=== PATIENT | female | born 1955 | race Caucasian/White ===

== ENCOUNTER 2017-02-21 01:45 | Inpatient (IN) | payer OTHER ==
--- NOTE | 2017-02-14 12:46 | History & Physical Pre-Op ---
General Information and HPI MD Statement: I have seen and personally examined ORLANDO KELLEY and documented this H&P. The patient is a 61 year old F who presented with a patient stated chief complaint of []. Source of Information: patient Exam Limitations: no limitations History of Present Illness: 61-year-old right-handed woman who has severe neck pain and left arm pain. She was in satisfactory condition March 2016 when her arm and neck while being on the severe traction wanted comforters she was carrying a call escalator. She started having neck pain. She went through a course of physical therapy and traction with traction worsened her symptoms Her symptoms are worse with activity coughing walking lying down. This support improve with medication change of position. She complains of weakness numbness and tingling in both arms. She feels her strength in her right hand including attaching intravenous solutions the patient. Allergies/Medications Allergies: Coded Allergies: NO KNOWN ALLERGIES (01/25/12) Home Med list Albuterol Sulfate (Proair Hfa) 90 MCG HFA.AER.AD 2 PUF INH Q4-6 PRN PRN asthma Albuterol Sulfate 1.25 MG/3 ML VIAL.NEB 1 Vial INH/JASON Q4-6 PRN asthma [BIOSIL] 1 CAP PO DAILY SUPPLEMENT (Reported) Diclofenac Sodium 75 MG TABLET.DR 1 TAB PO BID PRN PAIN (Reported) Doxycycline Hyclate (Vibramycin) 100 MG CAPSULE 1 CAP PO BID sinusitis Meloxicam 7.5 MG TABLET 1 TAB PO BID PRN PAIN/INFLAMMATION (Reported) Multivitamin With Iron (Hair Vitamin) 1 EACH TABLET 1 TAB PO DAILY SUPPLEMENT (Reported) [nebulizer machine] 1 U NEB 1 U UNK 1 PRN ASTHMA 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 With Home Meds: UNKNOWN Past History Medical History Type of Reaction: Anaphylaxis (none) Neurological: NONE EENT: NONE Cardiovascular: NONE Respiratory: NONE Gastrointestinal: NONE Hepatic: NONE Renal: NONE Musculoskeletal: C5-C6 FUSION Psychiatric: NONE Endocrine: NONE Blood Disorders: NONE Cancer(s): NONE 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 Home Who Do You Live With? spouse Services at Home None Primary Language: Kazakh Smoking Status: Never Smoked ETOH Use: occasional use Illicit Drug Use: denies illicit drug use Living Will? unknown Power of Searchlight Operator/HCP? 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 Ambulation: independent IADLs Independent: shopping. 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 EENTM: Denies: no symptoms. Cardiovascular: Denies: no symptoms. Respiratory: Denies: no symptoms. GI: Denies: no symptoms. Genitourinary: Denies: no symptoms. Musculoskeletal: Denies: no symptoms. Skin: Denies: no symptoms. Neurological/Psychological: Reports: see HPI. Hematologic/Endocrine: Denies: no symptoms. Immunologic/Allergic: Denies: no symptoms. All Other Systems: Reviewed and Negative Post Menopausal: Yes Mammogram Testing Status: Unknown if test ever done Pap Smear Testing Status: Unknown if test ever done Colonoscopy Testing Status: Unknown if test ever done Comments Symptomatology truly related to her neck complaints Exam & Diagnostic Data Last 24 Hrs of Vital Signs/I&O 5feet4, 150 pounds Physical Exam General Appearance Alert, Oriented X3, Cooperative Skin No Rashes, scars from previous surgery HEENT Atraumatic, marked decreased range of motion of neck on lateral bending with a positive Spurling sign to the right Neck No thryomegaly Lymphatic Cervical nl Cardiovascular Regular Rate Lungs Clear to Auscultation Abdomen Soft Neurological absent triceps reflex on the left. Increased finger flexors on the right. No Johnna's. Deep tendon reflexes are decreased in C6-C7 and T1 distribution. Hyporeflexic at the knee but no evidence of myelopathy. Extremities No Clubbing Vascular Normal Pulses Breasts No breast masses, deferred to primary care Reproductive (FEMALE) deferred to primary care Pelvic (FEMALE) deferred to primary care Rectal deferred to primary care Last 24 Hrs of Labs/John: INR normal Diagnostic Data ITS Data Unobtainable at this time EKG Results As per primary care CXR Results Reportedly clear Other Results MRI shows H and P C6 7 and C7-T1 Assessment/Plan Assessment/Plan: #1 cervical radiculopathy #2 and soft disc C6 7 C7-T1 As Ranked By This Provider Problem List: 1. Cervical radiculopathy at C7 Attending MD Review Statement Attending Statement Attending MD Statement: examined this patient, discussed with family Attending Assessment/Plan: Patient is admitted for two-level anterior cervical discectomy and fusion C6 7 C7-T1
[~2017-02-21] VITALS: Ht 162.6 cm; Wt 72.6 kg
[~2017-02-21 01:45] MED LIST: ALBUTEROL1.25 MG/1 INH/SOL; BIOSIL PO; DICLOFENAC SODI75 M2 PO; HAIR VITAMIN1 EACH PO; MELOXICAM7.5 M1 PO; PROAIR HFA8.5 GM INH; VIBRAMYCIN100 MG PO; nebulizer machine
--- NOTE | 2017-02-21 15:00 | Operative Report ---
Operative/Inv Procedure Report Surgery Date: 02/21/17 Name of Procedure: 1 anterior cervical microscopic discectomy C6C7, C7-T1 #2 preparation of space for fusion C6 7 C7-T1 Pre-Operative Diagnosis: #1 spondylosis C6 7 #2 spondylosis C7-T1 Post-Operative Diagnosis: Same Estimated Blood Loss: 50ml to 100ml Surgeon/Manager Of Purchasing: Dr. Antoine Quiroz MD(co-surgeon) Anesthesia: general endotracheal tube Monitors: Neurophysiology monitoring IV Fluids: D5 normal saline Implants: [employer]tronic Urine Output: See anesthesia report Drains: One Anthony-Luis Specimens: H&P C6 7 C7-T1 Microbiology: None Tourniquet: None Complications: Required ultimately at the closing of the case of a small vessel ligature from vascular surgery, Dr. Patel Condition: Stable Operative Indication: 61-year-old woman with excruciating neck pain and left arm pain who had significant compromise of the foramina at C6 7 which was beneath the previous fusion and C7-T1. Having failed all conservative measures indication for surgery alternative risks and possible complications were discussed at length patient elected to have surgery performed O guarantees given all questions answered Operative/Procedure Note Note: The patient was intubated supine was kept supine in the operating room with her neck hyperextended on a rolled sheet in a traction device with 10 pounds of weight. 2 g of antibiotics were given in the appropriate time frame. Her neck was prepped and draped in the usual sterile manner after initial C-arm films were obtained and a new incision created on the right-hand side of her neck after infiltrating with Xylocaine and epinephrine. Sharp dissection was carried down to the platysma which was then dissected in the direction of its fibers Sharp dissection was carried down to the anterior cervical fascia which was stripped going superiorly and inferiorly superiorly allowing us to see the previous plate which was then removed and for this C Izzy Quiroz MD's note Townsend were placed and the C6-7 and C7-T1 spaces and this was confirmed by C- arm After disinserting the longus coli muscles the appropriate retraction was obtained with Trimline retractors horizontally and vertically Following this under the illumination and magnification provided for by the Leica microscope the space at C6 7 was entered the massive anterior osteophyte being removed with 3 mm Kerrisons disc material was removed with straight pituitary and micro-graspers this was carried down until the posterior longitudinal ligament. Intervertebral body locomotive oiler was placed within the ligaments opened with a 1 mm Kerrison following this the remainder of the ligament and osteophytes were removed with 2 mm Kerrison and the and the foramen they were opened with 2 and 3 mm Kerrisons was foramen a especially on the left wide open the passage of a right angle ball dissector and a 45 ball dissector allowed us to verify that we had clear passage of instruments through an foraminotomy the piece of Gelfoam was left in the space attention was then directed to the C6 7 the C7-T1 space were likewise anterior osteophyte was removed with 2 mm Kerrison disc material removed with straight and up-biting pituitary and micro-grasper and intervertebral body locomotive oiler was then placed the posterior longitudinal ligament opened with 1 mm Kerrison and 2 mm Kerrison used to remove the posterior osteophytes and a foraminal entrapment upon removal there was a brief period of anomalous reading which normalized on neurophysiology towards the right Once the disc and removed from both spaces using angled curettes and rasps and high-speed drills both spaces were then prepared for fusion squared off and osteophytes anterior removed once the spaces were prepared for fusion procedure was allowed to proceed with Izzy Quiroz MD and this we dictated separately sponges and count correct and neurophysiology was back to baseline Findings: Significant osteoarthritic disease and degenerated disc disease Discharge Disposition: PACU Additional Comments: As mentioned above after the fusion was completed upon closing it was noted upon removal of the retraction that there was a small vessel of an arterial nature bleeding right beneath the level of the internal carotid and common carotid this required intraoperative consultation from vascular which was able to rapidly controlled this with 2 stitches of 5-0 Prolene CC: GERALD MCGOVERN,IZZY Mata; JHOANA MCGOVERN,SARAHY
--- NOTE | 2017-02-21 16:22 | Admission Core Measures ---
Admission Meds I reviewed the following Meds: Current Medications Sig/Cinthia Start time Last Medication Dose Stop Time Status Admin Albuterol Sulfate 2 PUF Q4-6 PRN PRN 02/21 1615 AC (Ventolin) Cefazolin Sodium 1,000 MG ONCE 02/21 0000 NR (Kefzol-Ancef Inj) 02/21 2359 Acute Coronary Syndrome Inclusion Criteria ACS Diagnosis No Inpatient Core Measures LDL Reminder: If No, please order W/I first 24hr of stay Congestive Heart Failure Inclusion Criteria CHF Diagnosis No Cerebrovascular accident Inclusion Criteria CVA/TIA Diagnosis No Inpatient Core Measures Bedside Swallow Eval Reminder: If BSE failed, place ST order Antithrombotic Reminder: Order Antithrombotic Medication by end of day 2 Antithrombotic Reminder: Document Reason Antithrombotic Not ordered by end of day 2 AFIB/Flutter Reminder: If Present, add to problem list AFIB/Flutter Reminder: Order Anticoag Medication for pts with AFIB/Flutter Atherosclerosis Reminder: If Present, add to problem list LDL Reminder: If No, please order W/I first 24hr of stay PT Order Reminder: If No, please order Venous thromboembolism Inpatient Core Measures VTE Risk Factors: Age > 40, Surgery No [facility] VTE prophylaxis d/t No contraindications No VTE Pharm Prophylaxis d/t No contraindications Inclusion Criteria - Per Current guidelines, there needs to be overlap - treatment for the first 5 days of Warfarin therapy. - Parenteral Anticoagulation (IV or SC) needs to be - given along with Warfarin therapy. VTE Diagnosis No VTE Type NONE VTE Confirmed by (Test) NONE Problem List As ranked by this Provider includes Assessment & Plan 1. Cervical radiculopathy at C7 HOME MEDS Home Med List Albuterol Sulfate (Proair Hfa) 90 MCG HFA.AER.AD 2 PUF INH Q4-6 PRN PRN asthma Albuterol Sulfate 1.25 MG/3 ML VIAL.NEB 1 Vial INH/JASON Q4-6 PRN asthma [BIOSIL] 1 CAP PO DAILY SUPPLEMENT (Reported) Diclofenac Sodium 75 MG TABLET.DR 1 TAB PO BID PRN PAIN (Reported) Doxycycline Hyclate (Vibramycin) 100 MG CAPSULE 1 CAP PO BID sinusitis Meloxicam 7.5 MG TABLET 1 TAB PO BID PRN PAIN/INFLAMMATION (Reported) Multivitamin With Iron (Hair Vitamin) 1 EACH TABLET 1 TAB PO DAILY SUPPLEMENT (Reported) [nebulizer machine] 1 U NEB 1 U UNK 1 PRN ASTHMA
--- NOTE | 2017-02-21 16:23 | Surgical Discharge Summary ---
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 Home Who Do You Live With? Family Services at Home: None What is Your Primary Language? Azerbaijani ETOH Use: occasional use Other Addictive Behavior: See above Review of Systems: see [facility] Hospital Course Course Attending Physician: GERALD MCGOVERN,IZZY Mata Primary Care Physician: MERLINE NGUYEN MD Hospital Course: 61-year-old right-handed woman who has severe neck pain and left arm pain. She went through a course of physical therapy and traction with traction worsened her symptoms. She underwent a removal of hardware C5 6 and anterior cervical discectomy with fusion C6/7 C7/T1. Surgery went without complications and patient was directed to the floor She received antibiotics for infectious prophylaxis. Her pain was adequately controlled, she did not suffer any complications, she is able to void, she was evaluated and was ambulatory with physical therapy, she had no significant swallowing difficulties and she was in stable for discharge. Her HAKEEM was removed without incident prior to discharge. Allergies: Coded Allergies: NO KNOWN ALLERGIES (01/25/12) Disposition Summary Disposition Principal Diagnosis: Disc herniation at C6 7 C7-T1with radiculopathy Additional Diagnosis: Status post ACD with fusion C6/7 C7/T1 with removal of hardware plate C5/6 Discharge Disposition: home or self care Discharge Instructions General Discharge Information Code Status: Full Code Patient's Diet: Regular Patient's Activity: Limit your activity to tolerance, no lifting greater than 10 pounds Follow-Up Instructions/Appts: Keep wound clean and dry, do not submerge in water. Watch for any signs of infection such as redness swelling discharge, numbness and tingling down the arms or legs, loss of function in the arms or legs or pain, fever or flulike illness or excessive bleeding. Call your surgeon with any concerns or questions. Medications at Discharge Discharge Medications: Stop taking the following medications: Diclofenac Sodium (Diclofenac Sodium) 75 MG TABLET.DR ORAL TWICE DAILY as needed for PAIN Qty = 60 Meloxicam (Meloxicam) 7.5 MG TABLET ORAL TWICE DAILY as needed for PAIN/ INFLAMMATION Qty = 30 Doxycycline Hyclate (Vibramycin) 100 MG CAPSULE ORAL TWICE DAILY Days = 7 Continue taking these medications: Multivitamin With Iron (Hair Vitamin) 1 EACH TABLET 1 Tablet ORAL DAILY Comments: NOT GIVEN WHILE HOSPITALED [BIOSIL] 1 Capsule ORAL DAILY Comments: NOT GIVEN WHILE HOSPITALIZED Albuterol Sulfate (Proair Hfa) 90 MCG HFA.AER.AD 2 Puff Inhale through mouth EVERY 4-6 HOURS NEEDED as needed for asthma Qty = 1 Comments: NOT GIVEN WHILE HOSPITALIZED Albuterol Sulfate (Albuterol Sulfate) 1.25 MG/3 ML VIAL.NEB 1 Vial Inhale Solution EVERY 4-6 HOURS as needed for asthma Qty = 150 Comments: NOT GIVEN WHILE HOSPITALIZED [nebulizer machine] 1 U NEB 1 Units UNKNOWN 1 as needed for ASTHMA Qty = 1 Instructions: NEBULIZER MACHINE
--- NOTE | 2017-02-21 16:38 | Patient Discharge Instructions ---
Discharge Instructions General Discharge Information You were seen/treated for: neck pain due to disc herniation and degeneration You had these procedures: cervical fusion c6/7, c7/T1, removal of hardware c5/6 Watch for these problems: Redness, swelling, severe pain not controlled by medication, difficulty swallowing, fever, flulike illness, weakness or numbness in the arms or legs Do not soak the wound: Yes No bath, but you may shower: Yes Special Instructions: Keep dressing in place. Change with supplies given to you by hospital nurse daily and as needed for soilage. Diet Continue normal diet: Yes Activity Full Activity/No Limits: No Activity Self Limited: Yes Pounds, do NOT lift more than: 10 Acute Coronary Syndrome Inclusion Criteria At DC or during hospital stay patient has or had the following: ACS DIAGNOSIS No Discharge Core Measures Meds if any: Prescribed or Continued at Discharge Meds if any: NOT Prescribed or Continued at Discharge Congestive Heart Failure Inclusion Criteria At DC or during hospital stay patient has or had the following: CHF DIAGNOSIS No Discharge Core Measures Meds if any: Prescribed or Continued at Discharge Meds if any: NOT Prescribed or Continued at Discharge Cerebrovascular accident Inclusion Criteria At DC or during hospital stay patient has or had the following: CVA/TIA Diagnosis No Discharge Core Measures Meds if any: Prescribed or Continued at Discharge Meds if any: NOT Prescribed or Continued at Discharge Venous thromboembolism Inclusion Criteria VTE Diagnosis No VTE Type NONE VTE Confirmed by (Test) NONE Discharge Core Measures - Per Current guidelines, there needs to be overlap - treatment for the first 5 days of Warfarin therapy. - If discharged on Warfarin prior to 5 days of - overlap therapy, the patient will need to be - assessed for post discharge needs including - *Post discharge parental anticoagulation - *Warfarin and/or parental anticoagulation education - *Follow up date to check INR post discharge At least 5 days overlap therapy as Inpatient No Meds if any: Prescribed or Continued at Discharge Note: Overlap Therapy is Warfarin and Anticoagulant Meds if any: NOT Prescribed or Continued at Discharge
--- NOTE | 2017-02-21 16:55 | RADIOLOGY REPORT ---
EXAMINATION: INTRAOPERATIVE FLUOROSCOPIC GUIDANCE AND CERVICAL SPINE CLINICAL INFORMATION: Anterior cervical spinal fusion. COMPARISON: 10/31/2016. TECHNIQUE: Fluoroscopic time was utilized in the OR for Dr. Weston. Fluoroscopic images were obtained in the lateral projection. FINDINGS: Fluoroscopic-guided was provided during anterior cervical spine fusion. On the final images, hardware is intact. FLUOROSCOPY TIME: 30 seconds of fluoroscopic time was utilized for the entirety of this examination. IMPRESSION: Fluoroscopic-guided was provided during anterior cervical spine fusion. On the final images, hardware is intact.
[2017-02-21 18:00] VITALS: BP 150/86
--- NOTE | 2017-02-21 18:59 | PN- Orthopedic ---
Subjective Subjective: Postop check: Patient seen in her room, she is without complaints, she has minimal pain, she states that she feels"great". She had mild numbness and pain to the left thumb which is resolving. She has no loss of function. She is in a cervical collar. Objective Vital Signs and I&Os Vital Signs Date Time Temp Pulse Resp B/P B/P Pulse O2 O2 Flow FiO2 Mean Ox Delivery Rate 02/21 1819 99 Nasal 2.0L Cannula 02/21 181 Nasal 2.0L Cannula 02/21 1800 97.8 85 18 150/86 99 Nasal 2.0L Cannula Physical Exam: Well-developed well-nourished no apparent distress. HEENT: Atraumatic, extraocular motion intact Neck: Cervical collar in place, anterior dressing intact, no significant swelling, no drainage from the wound or discharge. Swallowing is normal. HAKEEM drain noted, approximately 10 mL of thin bloody fluid Respiratory: No respiratory distress Extremities: No edema, no calf pain Neuro: Alert and oriented x3 Bilateral upper extremities and lower extremities are neurovascularly intact with sensation and motor grossly intact. Psych: Mood affect normal, normal memory normal judgment. She is in good spirits Skin: Warm and dry, no rash on exposed skin Assessment/Plan Assessment/Plan Postop day 0 status post removal of hardware C5 6 and anterior cervical discectomy with fusion C6/7 C7/T1. -Pain medication as needed, Percocet by mouth and Dilaudid IV for breakthrough -Perioperative antibiotics -Clear liquid diet until tomorrow and then advance as tolerated well and no significant cervical swelling -Monitor HAKEEM output drainage to self suction -Alps for DVT prophylaxis -IV fluids until tolerating by mouth well -Orthopedically stable postoperatively at this time Core Measures/Miscellaneous Venous Thromboembolism VTE Risk Factors: Age > 40, Surgery VTE Contraindications: No Contraindications VTE Diagnosis: No VTE Type: NONE VTE Confirmed by (Test): NONE Beta Alejandrina Is Beta Alejandrina a Home Med? No Antibiotics Is Patient on Antibiotics? Yes If Yes: prophylaxis
--- NOTE | 2017-02-21 19:30 | NUR ---
PT ARRIVED TO FLOOR AT 1730. AT BEDSIDE. PT ABLE TO SWALLOW WITHOUT PROBLEMS, DRSNG INTACT, COLLAR ON. PT STATES PAIN IS 5/10 BUT FEELS FINE AND DOES NOT WISH TO HAVE ANY PAIN MEDICATION AT THIS MOMENT. AX3. VERY PLEASANT. IV FLUIDS RUNNING. CALL STRONG WITHIN REACH. PT AMBULATED HALLWAY WITH SUPERVISION.
[2017-02-21 20:09] VITALS: BP 152/90
[2017-02-21 22:38] VITALS: BP 134/86
[2017-02-22 01:18] VITALS: BP 114/70
--- NOTE | 2017-02-22 02:53 | NUR ---
LATE ENTRY FOR 02/21/172129 REPORTED TO SURGICAL PA Antonio THAT PT C/O FEELING GAS BUBBLES AT R SHOULDER/R UPPER CHEST AREA. PT DOES NOT C/O OF [place] RESPIRATORY DISTRESS. PER SURGICAL PA WILL CONTINUE TO MONITOR.
[2017-02-22 07:13] VITALS: BP 104/60
--- NOTE | 2017-02-22 07:55 | PN- Orthopedic ---
Subjective Subjective: POD #1 s/p ACDF C6-T1 with removal of plate C5-6. Had a litany of complaints overnight including a headache, now resolved with tylenol, air bubbles in throat , now relieved, left thumb numbness (which continues) and right pinky with stabbing 'needle-like' pain. Hungry, wishes to be discharged today. Voiding spontaneously. Hard collar remains in place. No dysphagia to solids or liquids. Objective Vital Signs and I&Os Vital Signs Date Time Temp Pulse Resp B/P B/P Pulse O2 O2 Flow FiO2 Mean Ox Delivery Rate 02/22 0713 98.4 86 20 104/60 95 Nasal 2.0L Cannula 02/22 0118 98.9 64 20 114/70 96 Room Air 02/22 0000 96 Nasal 2.0L Cannula 02/218 98.1 71 20 134/86 97 Nasal 2.0L Cannula 02/21 2009 98.1 87 20 152/90 98 Nasal 2.0L Cannula 02/21 181 99 Nasal 2.0L Cannula 02/21 181 Nasal 2.0L Cannula 02/21 1800 97.8 85 18 150/86 99 Nasal 2.0L Cannula Intake & Output 02/22 0800 02/22 0000 02/21 1600 02/21 0800 02/21 0000 02/20 1600 Intake Total 240 780 Output Total 850 35 Balance -610 745 Intake, IV 300 Intake, Oral 240 480 Number 0 Bowel Movements Output, 35 Drainage Output, Urine 850 Patient 160 lb Weight Physical Exam: Gen: AAox3 in NAD Cor: S1+S2+ HEENT: hard collar removed. HAKEEM intact with serosanguinous drainage (20/08/25). Lungs: CTA mili Abd: soft, NT, ND, +Bs x4 Ext: no edema or calf tenderness to mili lower extremities. Upper extremities with palpable radial pulses. Hands warm. Door Trimmer strength equal. Left thumb numb , feels pressure. Sensation/motor exam grossly intact to mili upper and lower extremities. Current Medications: Current Medications Sig/Cinthia Start time Last Medication Dose Route Stop Time Status Admin Acetaminophen 650 MG Q4P PRN 02/22 0200 AC 02/22 PO 0207 Acetaminophen 1,000 MG Q6P PRN 02/21 1800 DC IV Al Hydroxide/Mg 30 ML Q4-6 PRN PRN 02/22 0115 AC 02/22 Hydroxide PO 0147 Albuterol Sulfate 2 PUF Q4-6 PRN PRN 02/21 1615 DC INH Cefazolin Sodium 1,000 MG IQ8 02/22 0000 AC 02/21 IV 02/22 0801 2330 Cefazolin Sodium 1,000 MG ONCE 02/21 0000 DC IV 02/21 2359 Diazepam 5 MG TID PRN 02/22 0115 AC 02/22 PO 0147 Docusate Sodium 100 MG DAILY NEEDED PRN 02/21 1800 AC PO Fentanyl Citrate 100 MCG .STK-MED ONE 02/21 0957 DC IM 02/21 0958 Hydromorphone HCl 0.6 MG Q4P PRN 02/21 1900 AC IV Hydromorphone HCl 1 MG Q4P PRN 02/21 1900 AC IV Hydromorphone HCl 2 MG .STK-MED ONE 02/21 0957 DC IM 02/21 0958 Meperidine HCl 50 MG .STK-MED ONE 02/21 1550 DC IM 02/21 1551 Midazolam HCl 2 MG .STK-MED ONE 02/21 0957 DC IM 02/21 0958 Morphine Sulfate 2 MG Q1P PRN 02/21 1800 DC IV Morphine Sulfate 4 MG Q2 HRS NEEDED PRN 02/21 1800 DC IV Ondansetron HCl 4 MG Q6P PRN 02/21 1800 AC IV Oxycodone/ 1 TAB Q4P PRN 02/21 1800 AC 02/22 Acetaminophen PO 0426 Oxycodone/ 2 TAB Q4P PRN 02/21 1800 AC Acetaminophen PO Polyethylene Glycol 17 GM DAILY NEEDED PRN 02/21 1800 AC PO Promethazine HCl 12.5 MG Q6P PRN 02/21 1800 AC IV 02/28 1614 Remifentanil 5 MG .STK-MED ONE 02/21 0958 DC IV 02/21 0959 Senna 374 MG AT BEDTIME NEED.. 02/21 1800 AC PO Sodium Chloride 1,000 ML Q13H 02/21 1800 AC 02/21 IV 1851 Results Last 48 Hours of Labs: Laboratory Tests 02/22 0610 Chemistry Sodium (137 - 145 mmol/L) 141 Potassium (3.5 - 5.1 mmol/L) 3.5 Chloride (98 - 107 mmol/L) 104 Carbon Dioxide (22 - 30 mmol/L) 23 Anion Gap (5 - 16) 13 BUN (7 - 17 mg/dL) 9 Creatinine (0.5 - 1.0 mg/dL) 0.7 Estimated GFR (>60 ml/min) > 60 BUN/Creatinine Ratio (7 - 25 %) 12.9 Hematology CBC w Diff Pending WBC Pending RBC Pending Hgb Pending Hct Pending MCV Pending MCH Pending RDW Pending Plt Count Pending MPV Pending PUBS MCHC Pending Assessment/Plan Assessment/Plan A: POD #1 s/p ACDF C6-T1 with removal of plate C5-6; AVSS. Plan: HAKEEM removed. Dressing taped in place. IVF stopped. Regular diet. OOB and ambulate. Dr. Quiroz to round today. Likely d/c later today. Core Measures/Miscellaneous Venous Thromboembolism VTE Risk Factors: Age > 40, Surgery VTE Contraindications: No Contraindications VTE Diagnosis: No VTE Type: NONE VTE Confirmed by (Test): NONE Beta Alejandrina Is Beta Alejandrina a Home Med? No Antibiotics Is Patient on Antibiotics? Yes If Yes: prophylaxis
--- NOTE | 2017-02-22 08:04 | Operative Report ---
Operative/Inv Procedure Report Surgery Date: 02/21/17 Name of Procedure: Emergent ligation of unnamed artery during anterior cervical approach Pre-Operative Diagnosis: Spondylolysis Post-Operative Diagnosis: Same Estimated Blood Loss: n/a Surgeon/Bottom Cager: JHOANA MCGOVERN [facility] Anesthesia: general endotracheal tube Operative/Procedure Note Note: I was asked for an emergent intraoperative consult by Rick Quiroz MD for an uncontrolled arterial bleeding during cervical spine anterior approach. For the details of the cervica spine procedure please refer to Rick Quiroz MD's operative note. During an anterior approach for cervical discectomy, an arterial bleeding near right common carotid artery was noted. Apparently, this was difficult to control. An emergent intraoperative vascular surgery consult was obtained. The bleeding was controlled by manual pressure by Rick Quiroz MD. When I arrived to the operating room, bleeding had decreased significantly. However, there was an area near the right common carotid artery that was still bleeding. 2 figure- of-eight 6-0 Prolene suture was applied in that area. Care was taken not to injure the common carotid artery. No more bleeding was noted after ligation. For the details of the remainder of the procedure please refer to Rick Quiroz MD's notes.
--- NOTE | 2017-02-22 08:11 | NUR ---
LATE ENTRY FOR 02/22/17 0145 SURGICAL LISETH Alvarez NOTIFIED OF PT C/O PAINFUL SWALLOWING/SOME SHARPNESS TO THE SWALLOW. PT REQUESTING TO TRY MAALOX/VALIUM. CALL TO SURGICAL. SEE EMAR.
[2017-02-22 08:13] LABS: ABSOLUTE BASOPHIL COUNT 0 /CUMM (0.0-0.2); ABSOLUTE EOSINOPHIL COUNT 0 /CUMM (0.0-0.7); ABSOLUTE LYMPH COUNT 1.4 /CUMM (1.2-3.4); ABSOLUTE MONOCYTE COUNT 0.8 /CUMM (0.10-0.60); BASOPHIL % 0.3 % (0.0-2.0); EOSINOPHIL % 0.3 % (0-5); GRANULOCYTE % 75.7 % (42.2-75.2); HEMATOCRIT 33.7 % (37-47); MEAN CORPUSCULAR HGB 29.7 PG (27.0-31.0); MEAN CORPUSCULAR HGB CONC 33.8 G/DL (33.0-37.0); MEAN CORPUSCULAR VOLUME 87.9 FL (81.0-99.0); MEAN PLATELET VOLUME 8.4 FL (7.4-10.4); PLATELET COUNT 237 /CUMM (130-400); RBC DISTRIBUTION WIDTH 13.5 % (11.5-14.5); RED BLOOD CELL CT 3.83 /CUMM (4.20-5.40); WHITE BLOOD CELL COUNT 9.3 /CUMM (4.8-10.8)
[2017-02-22] MEDS ORDERED: PERCOCET 5-3251 EACH PO (10:32)
--- NOTE | 2017-02-22 19:46 | Operative Report ---
Operative/Inv Procedure Report Surgery Date: 02/21/17 Name of Procedure: 1) C5-C6 Removal Of Anterior Instrumentation (Gerald/Venecia) 2) C5-C6 Exploration Of Anterior Cervical Spinal Fusion (Gerald/Venecia) 3) C6-C7 Anterior Cervical Discectomy, Osteophytectomy, Neural Element Decompression, Disk Space Preparation And Intervertebral (Interbody) Arthrodesis (Ana Co-Surgeons) 4) C7-T1 Anterior Cervical Discectomy, Osteophytectomy, Neural Element Decompression, Disk Space Preparation And Intervertebral (Interbody) Arthrodesis (Ana Co-Surgeons) 5) C6-C7 Anterior Cervical Interbody [employer] Lordotic ASR Machined Cortical-Cancellous Composite Allograft Implant Instrumentation ( Gerald/Venecia) 6) C7-T1 Anterior Cervical Interbody Medtronic Divergent Zero-Profile PEEK Cage And Endplate Screw Fixation Implant Instrumentation (Gerald/Venecia) 7) C6-C7 Anterior Cervical Transvertebral Medtronic [place] Vision Elite Plate-Screw Construct Implant Instrumentation (Gerald/Venecia) 8) [place], Preparation And Implantation of Local Morselized Autograft ( Gerald) 9) Microsurgical Technique Requiring Use Of Leica Operating Microscope For Discectomy, Osteophytectomy, Foraminotomies And Neural Element Decompression ( Venecia) 10) Electrophysiological Neurological Monitoring (EMG, SSEP, Recurrent Laryngeal Nerve And MEP Monitoring) ([place]/NeuroAlert) [Not separately coded] Pre-Operative Diagnosis: Preoperative Surgically Treated Diagnosis List: Primary Surgically Treated Preoperative Diagnoses: 1) 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 2) 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 3) Severe Intractable Activity-Limiting And Intermittently Incapacitating Neck Pain Unresponsive To Comprehensive Course Of Conservative Management 4) Presence Of (Retained) C5-C6 Anterior Transvertebral Plate-Screw Instrumentation 5) C6-C7 Degeneration Of Lower Cervical Intervertebral Disc 6) C7-T1 Displacement Of Cervicothoracic Intervertebral Disc Secondary Surgically Addressed Preoperative Diagnoses: 7) C5-C6 Cervical Spine Long-Standing (2008) Postprocedural Arthrodesis Status 8) C6-C7 Lower Cervical Spondylosis With Radiculopathy 9) C7-T1 Cervicothoracic Spondylosis With Radiculopathy 10) C6-C7 Lower Cervical Foraminal Spinal Stenosis 11) C7-T1 Cervicothoracic Foraminal Spinal Stenosis 12) C6-C7 Displacement Of Lower Cervical Intervertebral Disc 13) C7-T1 Degeneration Of Cervicothoracic Intervertebral Disc Post-Operative Diagnosis: Same as preoperative diagnosis list with the addition of: Intraoperative Surgically Treated Diagnoses: 1) C6-C7 Anticipated Post-Decompression Lower Cervical Spinal Segmental Intraoperative And Potential Postoperative Instability Requiring Instrumented Arthrodesis Stabilization 2) C7-T1 Anticipated Post-Decompression Cervicothoracic Spinal Segmental Intraoperative And Potential Postoperative Instability Requiring Instrumented Arthrodesis Stabilization Intraoperative And Postoperative Diagnoses Pertinent To Postoperative Care: 3) Anticipated Acute Postoperative Neck Region Pain Requiring Nursing Monitored Postoperative Narcotic Analgesic Medication Following Standard And Uncomplicated But Extensive Multilevel ACDF 4) Anticipated Acute Postoperative Neck Region Muscular Spasm Requiring Nursing Monitored Postoperative Muscle Relaxant Medication Following Standard And Uncomplicated But Extensive Multilevel ACDF 5) Acute Postoperative Lower Cervical Spinal Distribution Left Upper Extremity Inflammatory Radiculopathy Following Standard And Uncomplicated But Extensive Multilevel ACDF 6) Presence of C6-C7 Anterior Transvertebral Plate-Screw Osseous Stabilization Instrumentation Construct Implant And C7-T1 Cervical Spine Interbody PEEK Cage Zero Profile Implant With Endplate Screw Fixation 7) C6-C7 Presence of Cervical Spine Interbody Machined Allograft Indicating Use Of An External Pulsed Electromagnetic Field Stimulation Device To Optimize Fusion 8) C6-C7 And C7-T1 Acute Anterior Cervical And Cervicothoracic Decompression Postprocedural Status 9) C6-C7 And C7-T1 Multilevel Anterior Cervical Spine Early Postprocedural Arthrodesis Status Indicating Use Of An External Pulsed Electromagnetic Field Stimulation Device To Optimize Fusion Estimated Blood Loss: 50ml to 100ml Surgeon/Grinder Set Up Operator Internal: IZZY DUARTE MD - Primary Admitting Orthopaedic Spine Surgeon ANTOINE CUADRA MD - Primary Consulting Neurological Spine Surgeon MD JHOANA,[facility] - Primary Consulting Vascular Surgeon Surgical Providers: Regarding Orthopaedic Spine Portion Of Procedure Primarily Dictated Here: Izzy Duarte M.D. - Orthopaedic Spine Surgeon (Co-Surgeon/Primary Admitting Surgeon) Antoine Cuadra M.D. - Neurological Spine Surgeon (Co-Surgeon/Grinder Set Up Operator Internal Surgeon) See Neurosurgical Operative Report Regarding Surgical Provider Designation For Neurosurgical Spine Portion Of Procedure Anesthesia: general endotracheal tube Monitors: Standard general anesthesia and other perioperative monitoring was performed per anesthesia protocol. Standard Intraoperative EMG, SSEP, recurrent laryngeal nerve and MEP electrophysiological monitoring (NeuroAlert) Refer to anesthesia and intraoperative electrophysiological monitoring records for details. IV Fluids: Standard anesthesia fluid management was performed without requirement for additional or emergent fluid resuscitation. Refer to anesthesia records for details. Implants: Implants: Implants Removed (And Sent To Pathology For Analysis Per Hospital Protocol) : Interbody Implants Removed: None Anterior Transvertebral Cervical Implants Removed: Managed Systemstronic Anterior Cervical Venture Plate-Screw Construct: 4 x Venture Plate Fixation Screws Removed Bilaterally At C5 And C6 1 x Qvxrsk-Yipuvzbqfgkzym-Hsewrrl, 2-Bcrofgrhg-Tqzrf, 4- Hole Venture Plate Removed From C5-C6 Implants Placed: Interbody Implants: Mandelbrot Project Lordotic ASR Machined Cortical- Cancellous Composite Structural Allograft: 1 x 7 mm Height x 11 mm Depth x 14 mm Width At C6-C7 Managed Systemstronic Divergent PEEK Zero Profile Endplate Fixation Interbody Implant System: 1 x 7 mm Height x 12 mm Depth x 15 mm Width x 6 Degree Lordosis At C7-T1 2 x 11 mm x 3.5 mm Fixed Angle Self-Drilling Screws Into The Inferior C7 And Superior T1 Endplates Anterior Transvertebral Cervical Implants: Managed Systemstronic Anterior Cervical [place] Vision Elite (AVE) Plate- Screw Construct: 1 x 25 mm 1-Level, 4-Hole AVE Plate At C6-C7 2 x 13 mm x 4.0 mm Fixed Angle Self-Tapping (FAST) AVE Screws Bilaterally At C7 2 x 13 mm x 4.0 mm Variable Angle Self-Tapping (VAST) AVE Screws Bilaterally At C6 Graft: Graft Removed: None Graft Placed: Structural Cortical-Cancellous Composite Allograft Implant (See Above) Morselized Locally Harvested Autograft In The Central Chamber Of The Interbody Cage At C7-T1 Urine Output: Refer to anesthesia records for details. Drains: Small 10 Green[place]ic round Anthony-Luis (HAKEEM) carried out through the inferolateral wall of the superficial incision and attached to small bulb suction Specimens: Cervical disc material and removed implants was sent to pathology for analysis and documentation per hospital protocol. Complications: None Condition: Initial Preoperative Condition: The patients condition was stable to the operating room without vital sign, hemodynamic, cardiopulmonary or other organ system abnormality and without new neurovascular or musculoskeletal functional deficit compared to normal baseline preoperative orthopaedic spine surgical office admission history and physical and neurosurgical consultation evaluations. The patient was cleared preoperatively as optimized for surgery by her primary care physician and all requested consulting specialty services prior to admission. There were no significant adverse changes evident in the patients condition between the clearance admission history & physical evaluations and the immediate preoperative assessment. Intraoperative Condition: The patient was stable throughout the procedure without vital sign, cardiopulmonary or other monitoring changes, lability, instability or abnormality. The patient's initial baseline neurophysiological monitoring signals (shortly after general anesthetic induction and prior to incision) were normal in amplitude and latency with no electrophysiologic manifestations of compression or suggestion of occult deficit. The electrophysiological recordings throughout the remainder of the procedure and at the end of the case were normal and at the baseline established by initial recordings after induction of anesthesia and before incision. A small arterial hemorrhage, which appeared to be from the carotid sheath or a muscular perforating vessel deep to the primary arterial bundle and without suggestion of involvement of the carotid or one of its primary branches, was controlled with bipolar and pressure however vascular surgical intraoperative consultation and suture closure was requested given the proximity to the carotid. The bleeding point, which was no longer pulsatile at the time of intraoperative vascular surgical assessment, was identified and over-sewn with no further hemorrhage noted on several passages of irrigation thereafter and during the entire closure procedure. A small HAKEEM drain was also placed to minimize the risk of hematoma formation and very little output was noted during closure and transfer of the patient. Final Postoperative Condition: The patient was extubated and stable to the recovery room with optimally-fitted Barnwell cervical collar in place and with no new deficit or change compared to normal and stable baseline preoperative neurological and musculoskeletal assessment based on limited evaluation during initial recovery from anesthesia. The patient demonstrated grossly normal spontaneous motion initially as well as later normal motion and function to command in both upper and distal lower extremities once fully awake upon early recovery from anesthesia. Vocalization was nearly normal with only minimal immediate postoperative hoarseness within the expected early postoperative range for this procedure. There was no respiratory difficulty reported or observed. There was no significant cervical or facial soft tissue swelling evident to visual assessment. The drain output was minimal throughout the initial recovery room evaluation phase. There was no significant swelling evident in either calf and her tissues were soft to palpation with no tenderness on gentle compression. There was no pain with active and passive distal extremity motion and there was no postoperative suggestion of the development of an urgent or emergent condition related to the deep soft tissues or vascular system. 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[facility] [employer] S/P C5-C6 ACDF ( 2008, Karine/Amairani) who presents today for C5-C6 removal of hardware and exploration of fusion followed by C6-C7 and C7-T1 anterior cervical discectomy and instrumented fusion to address recurrent, progressive and recently severe primary axial and lesser bilateral (left greater than right) distal radiating pain along with progressive subjective bilateral sensory, motor and coordination upper extremity functional deficits secondary to degenerative changes, foraminal disk herniations, foraminal osseous and soft tissue stenosis causing neural element compression. This condition became symptomatic and progressive following a right upper extremity traction injury (October,) at which time her right hand and wrist became caught in the handle of a comforter that she was carrying while the comforter became caught in the escalator [place] the mall. She had been doing well prior to that following her previous neck surgery with no reported residual symptoms or deficits. The escalator injury was the most proximate correlating event mechanistically and physiologically consistent with the onset of her current symptom complex and her requirement for current treatment. Her previous C5-C6 fusion appears to have gone on to form a solid arthrodesis but needs to be explored as part of the currently planned procedure to insure that this level does not require augmentation particularly adjacent to the above planned fusion. Her symptoms and condition have steadily progressed consistent with the mechanism of injury, initial presentation, prolonged duration, serial clinical assessments and radiologic findings. The patient's preoperative cervical spine radiologic workup (including static and dynamic radiographs, MRI and CT scans) showed the above noted bilateral spondylotic foraminal stenosis exacerbated by small foraminal disk herniations consistent with the patient's current clinical condition which was asymptomatic prior to and made symptomatic by her reported injury. These radiologic findings are consistent with her symptoms, findings and functional deficits as well as her progression and worsening over time. Her standard preoperative laboratory studies were unremarkable except for slight elevations in serum glucose, BUN, creatinine and urinalysis findings all of which were felt to be sufficiently close to normal range that they would not significantly interfere with surgical or perioperative plans or care. The patient has sufficiently severe and progressively worsening clinical findings (symptoms listed above with subtle physical examination findings consistent with her subjective deficits and functional limitations) related to this condition, has failed a comprehensive conservative management program despite excellent compliance to her maximal capacity and tolerance, has close correlation between clinical presentation and preoperative studies, is medically optimized for surgical intervention, understands and accepts the limitations, uncertainties and risk of surgery, appears to have appropriate goals for surgical outcome, and is more likely to achieve those goals with the planned surgical procedure than with other options for treatment thus making her a reasonable candidate for surgical intervention. The patient reports no significant past medical history pertinent to her current surgical treatment. She has a critical past surgical history of C5-C6 ACDF (2008, Karine/Amairani) which is detailed above. She also has a positive secondary past surgical history of left carpal tunnel release and anterior-posterior repair. She denies any complications, adverse events or outcomes associated with any of the above procedures and in fact recovered fully from those surgeries without functional limitations. The patient reports no current or recent medication or supplement use. She denies any history of anaphylactic, anaphylactoid, allergic or non-allergic reactions or sensitivities to medications, foods or skin contact environmental allergens. He is a non- smoker and denies significant alcohol intake or other social risk factors. The patient has been fully functional at work but has had to curtail certain normal home and recreational activities due to recently increased axial and radiating symptoms. The above medical, surgical, medication, allergy and other clinical information was reviewed throughout the hospital admission and preoperative confirmation process but did not alter surgical recommendations, treatment plans or perioperative management in this case. Treatment options were discussed in detail directly with the patient. After careful and appropriate consideration she elected to proceed with the planned operative procedure of C5-C6 removal of hardware and exploration of fusion followed by C6-C7 and C7-T1 anterior cervical discectomy and instrumented fusion. She also consented to any additional indicated procedure based on intraoperative findings. Arrangements for hospital admission, surgery and perioperative care were made through Dr. Duarte's office for combined Orthopaedic and Neurosurgery co-surgical treatment. In addition to the general risks of all surgical procedures (bleeding, infection, anesthesia and other general risks), specific risks of the planned procedure were reviewed with the patient including but not limited to tissue injury or exacerbation of prior injury (spinal cord, nerve root, peripheral nerve, meningeal, blood vessel, bone, disk, joint, muscle, tendon, ligament, esophagus, trachea or other tissue injury), fracture of spinal elements, failure of spinal implants (fracture, loosening, or subsidence), failure of fusion, worsening of spinal alignment, abnormal (hypertrophic, heterotopic or ectopic) bone or scar formation, new or persistent-exacerbated symptoms (pain, dysesthesias, paresthesias, headaches, dizziness), development of new or worsening of preexisting medical conditions or complications (arthritis, blood clots, cardiac events, stroke, acute organ failure of any organ, other medical conditions potentially worsened by trauma, surgery, anesthesia or immobility), inability to complete the procedure as planned, and need for reoperation at the current or a future related site (including possible surgeries at other already degenerative levels and/or posterior stabilization at the same or adjacent levels). Potential for partial or complete, global or regional loss of motor, sensory, coordination, swallowing, voice, facial motion, facial expression, ocular, pupillary, breathing, ambulatory, balance, bladder, bowel or sexual function was reviewed. Remaining potential complications were reviewed in inclusive risk categories ranging through all severity levels from temporary changes to catastrophic outcomes such as complete paralysis, organ failure, disfigurement or . The patient understood and accepted that her risk was estimated to be slightly above average for this procedure (compared to her age, clinical and function matched cohort) due to her duration and steady progression of pre-operative symptoms, progressive pre-operative subjective bilateral upper extremity functional deficits, , multiple levels of degenerative disease, previous surgery in the same anterior cervical region, progressive multilevel cervical motion segment involvement over time, the post-traumatic nature of her condition with potential long-term and as yet occult involvement of other levels and structures. She also understood that her risk of personally significant functional limitation was higher than most patients because of her young age and normal baseline vigorous level of work, home and recreational activity. Signed operative consent was obtained directly from the patient with good understanding of all reasonable alternatives, indications, goals, expectations, limitations, risks and benefits of the planned procedure. The patient consented to all phases of the procedure being performed by Dr. Duarte and Dr. Cuadra as co-surgeons with the assistance of all designated hospital and outpatient practice team members. The patient was cleared preoperatively as optimized for surgery by her primary care physician, all requested consulting medical subspecialists and both primary surgeons office evaluations prior to admission. Operative/Procedure Note Note: Preoperative Holding Area Assessment/Preparation: The patient was evaluated in the preoperative holding area prior to surgery and no clinical changes or contraindications to surgical intervention were documented compared to the preoperative office and clearance evaluations. Active, patient controlled Lhermitte's and Spurling's maneuvers were negative and there were no abnormal or hyperactive reflexes to suggest acute, resting or positional neural element compression that might be associated with increased neurological intraoperative risk based on preoperative assessment. The surgical plan and site were confirmed with the patient and preoperative paperwork was finalized. In the preoperative evaluation area, the patient confirmed her oral intake status as NPO since midnight prior to surgery. The region of the intended surgical site was cleansed, prepped and marked per protocol. The surgeons, anesthesia care team members, and operating room staff confirmed the patient identity, surgical procedure, and operative site as well as other clinical details with the patient in an initial documented preoperative confirmation (awake time out) prior to the administration of sedation or anesthesia. Surgical Procedure: Dr. Duarte and Dr. Cuadra were both present for and participated equally as co-surgeons in all clinically significant phases of the surgical procedure documented below as well as for all critical intraoperative and perioperative decisions and interventions. The set-up, positioning, removal of anterior cervical plate-screw construct, exploration of previous fusion level, arthrodesis, instrumentation and closure portions of the procedure are described in greatest detail in this operative report. Refer to Dr. Nieto Neurosurgical operative report for additional details particularly regarding the electrophysiological monitoring, application of cervical traction, exposure, discectomies, osteophytectomies, neural element decompression and microsurgical (use of the operating microscope) portions of the procedure. Refer to Dr. Carpenter's operative report regarding suture ligation of small arterial vessel within the cervical soft tissues anterolateral to the prevertebral space and posteromedial to the carotid arterial complex. Set-Up/Positioning/Exposure - The patient was brought to the operating room in stable condition and underwent uncomplicated induction of general anesthesia, intubation, and placement of all appropriate monitors, lines and catheters without difficulty. Administration of 2 grams of IV Ancef based on patient body mass was given for surgical prophylaxis and was completed at least 30 and less than 60 minutes prior to making an incision. Decadron 4 mg was administered by the anesthesia team to optimize perioperative airway management. The patient was positioned supine on the operating table in standard fashion for an anterior cervical discectomy and instrumented fusion taking care to protect and stabilize the spine during transfer, avoid positions of nerve stretch, pad all pressure points, and support the head and neck in a slightly extended position using a rolled sheet under the scapulae and a gel donut head rest under the occiput. Harness cervical traction apparatus was placed in standard fashion with 10 pounds of stabilizing weight applied taking care to avoid any force transmission to the endotracheal tube. Electrophysiological monitoring electrodes were placed per standard monitoring protocol. Wrist cuffs were placed with sufficient circumferential approximation so that traction could be applied during the case if necessary for radiologic visualization, but loose enough that there was no pressure to the wrists when traction was not being applied. Care was taken to insure that all IV sites and monitoring leads were protected in the event that wrist traction was required during the procedure. The arms were well padded and tucked at the patient's sides again taking care to protect all IV sites and monitoring leads. Baseline preoperative electrophysiological monitoring readings were obtained and no gross abnormalities were noted. The surgeons, anesthesia care team, and operating room staff again documented the patient identity, surgical procedure, and operative site as well as other clinical details in a final documented confirmation (final time out) prior to beginning the procedure. A cross-table lateral fluoroscopic image was obtained with a skin marker in place to determine the optimal level for incision, to document optimized intraoperative cervical alignment, and to confirm acceptable radiologic visualization of the intended operative levels with sufficient detail down to the lower cervical and cervicothoracic levels throughout the procedure. Bilateral upper extremity traction was applied to obtain optimal visualization during this localization phase of the procedure but was not required during the remainder of the surgery. The C7-T1 level was felt to be accessible without interference from the clavicle or sternal notch and so the planned procedure was continued without modification. The previous left sided anterior cervical incision was felt to be too high to adequately access the C7-T1 level based on the position of the radiopaque skin marker on lateral fluoroscopic view and so a lower right sided incision and entry site was planned, selected and marked. After upper extremity traction was released the traction cuffs were checked to insure that there was no residual tension at the wrists with a finger breadth between the cuffs and the skin on each side. All IV sites and monitoring leads were also checked to make certain that they were functioning properly with no residual pressure prior to proceeding. The approach, exposure, hemostasis, retractor placement, and fluoroscopic identification of intended operative levels are dictated in greatest detail by Dr. Cuadra in his Neurosurgery operative report. The removal of hardware and exploration of previous fusion at the C5-C6 level is detailed in this operative report. The discectomy, osteophytectomy, central and foraminal decompression portions of the procedure are then also described in greatest detail in the Neurosurgery operative report. Refer to that document for additional details. In brief summary, after sterile prep and drape performed using standard technique, a right anterior cervical incision was mapped, infiltrated with local anesthetic, and made in a transverse curvilinear fashion within a major neck skin crease overlying the intended operative levels using a #15 scalpel blade. The incision was extended from just lateral of midline to just medial of the medial palpated edge of the sternocleidomastoid muscle at that level. This incision was made in the skin crease below the prior left side incision so as to optimize access to all operative levels. Hemostasis was achieved using Bovie and Bipolar electrocautery beginning with the incision and continuing throughout the procedure with settings appropriate to each progressive level. The dissection was carried through the subcutaneous layer in line with the incision, both the upper and lower skin flaps were mobilized so as to minimize traction injury, and the platysma was then bluntly dissected in line with its fibers and divided longitudinally to expose the underlying strap muscles. Soft tissue dissection continued down to the prevertebral space in the plane between the esophagus and trachea medially and the palpated pulse of the vertebral artery laterally taking care to gently manually retract and protect these structures throughout the dissection using hand-held Cloward retractors. With the anterior longitudinal ligament identified at the disk space level, the lower end of the previous plate was exposed and two spinal needles were bent in a closely spaced double right-angle configuration to prevent excessive penetration, gently placed into the two disks below the plate and confirmed to be at the intended operative levels (C6-C7 and C7-T1) on cross-table lateral fluoroscopic image. No additional upper extremity traction was required for optimal fluoroscopic visualization down to the lower cervical levels and the critical cervical region was optimally visualized throughout the procedure without the need for additional cranial or extremity traction. Once the appropriate levels were fluoroscopically confirmed, dissection was optimized to fully expose both intended disc space levels and the previous instrumented fusion level as well as the adjacent medial margins of the longus colli muscles which were elevated using Bipolar and Bovie electrocautery to optimize stable placement of the transverse serrated-edge (toothed) Trim-line retractor blades and self-retaining retractor arm. Use of this submuscular dissection technique insured full horizontal exposure while minimizing pressure on the more superficial medial and lateral structures so as to minimize risk of potential adverse effects associated with retraction. The longitudinal smooth-edge Trim- line retractor blades and arm were then placed using standard technique and configuration so as to optimize exposure while taking care to protect surrounding structures. The C5-C6 arthrodesis level was fully dissected anteriorly (between the anteromedial edges of the longus colli musculature on each side). All four screws were removed without difficulty using the special screwdriver sheath required for release of the Nitinol ring capture mechanism per the design of this construct. The plate was then removed and all residual over grown bone and soft tissue was resected with rongeurs. The C5-C6 arthrodesis was then assessed by visual and palpation examination. Further gentle mechanical assessment was later performed during C6-C7 decompression and interbody instrumentation which confirmed singular motion of the C5-C6 segment during lower cervical manipulation confirming a solid arthrodesis with no independent angular or translational motion to suggest occult pseudoarthrosis at any point during the remainder of the procedure. No additional mechanical testing was felt to be necessary to assess the arthrodesis in this case. The Leica operating microscope was sterilely draped and brought in for the microsurgical decompressive portion of the procedure. Discectomy/Neural Decompression - After confirming optimized exposure and visualization, a rectangular anterior annulectomy was performed first at C6-C7 using a #11 scalpel blade. The disc space was gently distracted using a long-armed cervical intervertebral photo intern and a majority of the discectomy was performed with straight and curved curettes alternating with straight and angled pituitary rongeurs down to the level of the uncovertebral joints. Degenerative disk and fibrotic material was found extending within a disk-osteophyte complex into the central, lateral recess and foraminal zones. Most of the direct neural compression was spondylotic in the foraminal zones at this level although the additional lesser herniated soft tissue component of disk material may have also contributed. All resected disc material was sent to pathology for analysis per hospital protocol. Using curved curettes and Kerrison rongeurs, the posterior longitudinal ligament and all impinging osteophytes were resected. Bilateral foraminotomies were then performed using Kerrison rongeurs to fully decompress all exiting neural elements at the operative level. No significant irritability, hyperactive neural firing, muscle contraction or electrophysiological monitoring changes were noted on initial posterior disk fragment and osteophyte removal or during foraminotomy. Hemostasis of osseous and epidural bleeding was achieved using Thrombin soaked Gelfoam and paddies gently applied and removed by irrigation with all bleeding controlled. Final complete central and foraminal decompression was confirmed by gentle passage of a blunt nerve hook behind both the upper and lower vertebral bodies and out each foramen without resistance. Attention was then turned to the C7-T1 level which was addressed using identical technique to that described above including exposure, annulectomy, disc and herniated fragment excision, osteophytectomy and bilateral foraminotomies. At this level, a greater degree of central, bilateral paracentral and foraminal degenerative subligamentous disk fragments and fibrotic material was identified causing tenting of the posterior longitudinal ligament and associated indirect compression within the bilateral foraminal zones. Significant spondylosis was also noted particularly in the lateral uncovertebral regions causing similar compression to that seen previously at C6- C7 but exacerbated by additional disk herniation fragment compression consistent with the patient's injury, clinical presentation and preoperative radiologic studies. The posterior encroaching disc material was removed, followed by resection of uncovertebral osteophytes. Bilateral foraminotomies were performed using standard technique as described above. No neural irritability or muscular hyperactivity was noted during decompression at this level. Full decompression was again documented by gentle palpation using a nerve hook to document patency and clear neural element passage in all zones before proceeding with the fusion portion of the procedure. No adverse electrophysiological changes were seen at any point during the decompression of either level or at any time during the case. The microscope was kept in place for the interspace preparation and implantation portion of the procedure. Arthrodesis/Instrumentation - Arthrodesis was first performed at the C6-C7 level. A Leksell rongeur was used to resect the anterior osteophytes at the margins of the disc space until the anterior surface across the disc space was flush and optimized for placement of an anterior transvertebral plate. All resected anterior osteophyte bone was cleaned, morselized, and saved along with the bone resected from decompression for later reimplantation as autograft. The Ozmosis drill with a 5 mm cutting eugenio was used to remove anterior osteophytes and cartilaginous endplate as well as to partially decorticate the osseous endplates in a tapered fashion from slightly more narrow anteriorly to slightly wider posteriorly leaving both anterior and posterior, superior and inferior vertebral wall projections of 1-2 mm extending into the interspace so as to prevent implant migration. This contouring resulted in slightly more anterior than posterior distraction and disc space height sabianist with partial sabianist of lordosis when the anatomically contoured lordotic implant was later impacted into the tapered interspace. This also insured optimal interference fit of the intervertebral implant and lateral ligamentous tension of the interspace for optimal fusion. Identical technique was used to prepare the disk space and endplates at the C7- T1 level. As at the previous level described above the endplates were contoured in a tapered fashion to optimize final lordotic alignment and small endplate projections were fashioned at the margins of the endplates so as to block implant migration. Hemostasis was confirmed and both the interspaces and surgical site were thoroughly irrigated prior to placement of the structural composite allograft. All stabilizing and traction weights were removed from the halter harness. With no Halter traction or interspace distraction applied to the operative level, the C6-C7 disk space was templated with optimal fit and soft tissue tension documented using a standard trial of 7 mm height, 11 mm depth and 14 mm width. Just prior to interbody implant placement, the central portion of each endplate was breached to bleeding cancellous bone with the drill and curved curette at the interface with the central cancellous portion of the composite allograft implant to promote optimal ingrowth. The peripheral zones of both osseous endplates surrounding this central breach were preserved at the perimeter for optimal support of the cortical portion of the composite allograft implant so as to minimize the risk of subsidence. The 7 mm x 11 mm x 14 mm Managed [employer] Lordotic ASR Machined Cortical-Cancellous Composite Allograft implant was reconstituted in saline and was then contoured at its posterior corners as needed for optimal impaction. The composite allograft implant was then gently impacted into the interspace until it was recessed behind the anterior vertebral wall superior and inferior ridges which had been fashioned to prevent migration. Once the composite allograft implant was in optimal position, excellent interference fit was documented with no motion seen when gentle anteriorly directed pressure was applied to the posterior aspect of the graft on each side using a nerve hook. This maneuver also allowed palpation behind the graft to insure that there was sufficient space between the graft and the thecal sac with no impingement. At C7-T1, because of the slope of the cervicothoracic junction in this patient, it was felt that a zero profile device would provide optimal fixation while obviating the need for a highly contoured multi-level plate extending down to T1. Therefore, the Managed [employer] Zero Profile Divergence instrumentation was used at the C7-T1 level. This was implanted and fixed prior to final placement of the C6-C7 anterior plate. With the endplate preparation completed as noted above and hemostasis achieved, the trials for the Divergence set were used to measure an optimal interbody implant size of 7 mm height x 12 mm depth x 15 mm width x 6 degree lordotic angulation. The central chamber of this PEEK implant was filled with morselized local autograft. The central endplates were breached in the region of this centrally autograft-filled chamber so as to optimize osseous ingrowth while the peripheral zones were left intact for optimal support of the structural portion of the cage. The implant was gently impacted into the C7-T1 interspace until it was recessed behind the anterior vertebral wall superior and inferior ridges which had been fashioned to prevent migration. Good interference fit and sabianist of disk space height, foraminal height, lordosis and stability was documented with no motion evident when gentle anteriorly directed force was applied to the posterior margin of the implant with a nerve hook. The two 11 mm x 3.5 mm upward and downward directed self- drilling endplate fixation screws were then placed using standard technique per the design of the implant with good insertional and final torque and stability. Once the interbody instrumentation was completed optimally at both operative levels, hemostasis was achieved using small pieces of Thrombin soaked Gelfoam as well as FloSeal placed adjacent to the interbody implants where necessary. Bone wax was also applied to the anterior vertebral body surfaces for any necessary additional osseous hemostasis. The microscope was then removed and attention was turned to the anterior plate and screw construct placement and stabilization at C6-C7. Final contouring of the anterior vertebral body blackburn was performed using the [employer] Angel drill and cutting eugenio until an appropriately sized plate could rest flush on all anterior vertebral body surfaces to provide optimal fixation. A 25 mm [employer] [place] Vision Elite (AVE) 4-hole (1 fusion level) plate was chosen such that the upper screw holes of the plate were positioned below the inferior osseous screw holes of the previously removed C5-C6 plate. In this case, sufficient unused anterior C6 vertebral body bone was available for fixation to allow new fixation of the upper screws of the new plate without having to use the previous screw holes. This plate size and position resulted in optimal fixation while avoiding the previous screw holes at C6 and the inferior endplate screw at C7 from the lower zero-profile interbody construct. The plate was contoured into optimal lordosis prior to implantation. Ultimately , the endplate and plate contouring contributed to noticeable partial sabianist of cervical lordosis through the fused segments from a neutral preoperative alignment. However, given that the patient's preoperative loss of lordosis was not felt to constitute a clinically significant deformity there was no formal corrective procedure required for improved outcome in this case and so the achieved correction was considered an included portion of the arthrodesis not requiring a distinct and separately designated or coded deformity corrective procedure. Screws were placed using standard technique with trajectories which were divergent in the sagittal plane and convergent in the axial plane for optimal purchase and load sharing with the interbody graft. This screw trajectory also avoided any contact with the construct below where the screws were placed with axial plane divergence. Fixed angle 13 mm x 4.0 mm screws were placed at C7 bilaterally and variable angle 13 mm x 4.0 mm screws were placed at C6 bilaterally to promote load sharing, force transmission and compression across the anterior column and interbody composite allograft implant. All screws were found to have optimal insertional and final torque during placement as well as good fixation and final seating in the plate. The interbody implants as well as the anterior plate and screw construct were confirmed to be in good position on final intraoperative cross-table lateral fluoroscopic images which were uploaded to the [facility] PACS system. The final plate-screw and interbody- implant-screw rotating locking mechanisms were set over the screw heads at each level with good coverage so as to minimize the risk of screw loosening or protrusion. Continuous electrophysiological monitoring throughout the procedure showed no prolonged or persistent adverse changes at any point during the decompression, instrumentation, or at any other time during the case. Closure/Recovery - The retractors were removed taking care to protect all soft tissue structures. The surgical site was thoroughly irrigated and hemostasis was carefully achieved prior to closure. After initial irrigation, hemorrhage from a very small arterial vessel was noted in the soft tissue wall of the surgical site in the region posterior and medial to the palpated pulse of the carotid artery and, based on its position, most likely representing a small carotid sheath or muscular perforating arterial branch. Persistent hemorrhage was noted despite bipolar electrocautery and, although pressure application was effective in stopping the hemorrhage, it was felt that suture ligation would be optimal so as to minimize any risk of hematoma formation. An intraoperative vascular surgery consultation was requested of Dr. Carpenter, who was available between cases and scrubbed in to perform the suture ligation using two passes of standard vascular suture. Refer to his operative report for details. No residual bleeding was noted thereafter even with copious irrigation. FloSeal (5 cc) was placed in the prevertebral space and lateral margins of the operated disc space around the implants where helpful for osseous and soft tissue hemostasis. The surgical site was found to be dry at the end of the procedure. A 10 Greenlandic round HAKEEM drain was placed through the inferolateral aspect of the subcutaneous space using the attached trochar and the fenestrated portion was placed in the prevertebral space so as to prevent any hematoma formation. Initial counts were correct prior to closure. The deep soft tissue layer was loosely reapproximated in a [id number] closure using #3-0 undyed Vicryl interrupted, simple suture technique. The platysma [id number] closure was also performed with #3-0 undyed Vicryl interrupted, simple suture technique. The superficial subcutaneous layer was closed with #3-0 undyed Vicryl inverted, interrupted, simple sutures. The skin was closed using #4-0 undyed running subcuticular Polysorb suture followed by Steri-Strips applied with Mastisol. The drain was connected to a small suction bulb which was primed and sealed. There was only minimal output from the drain following activation. A standard, sterile small island dressing was placed with good coverage. All counts were correct prior to removing the drapes. The Halter harness was removed and a rigid buttressed foam Barnwell cervical collar was placed and fitted optimally prior to awakening the patient. The patient was extubated on the operating table without difficulty and then transferred to the hospital bed in the supine position taking care to stabilize the head and neck during transfer. Recovery Room Assessment: The patient was taken to the recovery room in stable condition where gross neurological examination showed normal function with no deficits or worsening compared to her normal baseline pre-operative assessments on initial recovery from anesthesia. The patient will follow the usual postoperative protocol for multilevel anterior cervical discectomy, osteophytectomy, foraminotomies and central canal as well as bilateral lateral recess and foraminal neural element decompression with anterior interbody composite allograft or local autograft fusion stabilized by anterior transvertebral and intervertebral instrumentation respectively following additional dissection for hardware removal and exploration of fusion at an adjacent segment. This postoperative care plan will include standard overnight nursing care and pain control, early hospital postoperative extremity and ambulatory mobilization, collar use when out of bed and home discharge planning for the morning after surgery with instructions to minimize head and neck motion initially so as to optimize fusion healing. Additional postoperative protocols related to use of postoperative drain will be followed however no other specialized protocols should be necessary unless her clinical condition changes or concerning circumstances present. Standard airway monitoring S/P ACDF should be sufficient however, if any concerns arise there will be a low threshold for contacting the attending surgeon and initiating a higher level of monitoring overnight. Outpatient rehabilitation program will be arranged through the office to begin approximately 4 weeks after surgery assuming standard and uncomplicated postoperative course and following clearance at initial postoperative follow-up assessment. Given the multilevel nature of her fusion procedure, use of a composite allograft interbody implant and her intention to return to vigorous activities as soon as possible, a spinal fusion osteogenesis stimulator is indicated and will be ordered, applied and followed through the office. Findings: 1) C5-C6 anterior transvertebral hardware was removed without complication. 2) C5-C6 arthrodesis was found to be solid and mature based on intraoperative visual and palpation testing evaluation criteria. 3) Moderately compressive degenerative disk herniation fragments, associated with buckling of and unidirectional neural element encroachment through the posterior longitudinal ligament were identified and resected bilaterally at the C7-T1 level. 4) Compressive osteophytes, especially at the bilateral uncovertebral joints , were identified and completely resected bilaterally at the C6-C7 and C7-T1 levels. 5) Full central canal, lateral recess and bilateral foraminal decompression was documented by intraoperative palpation at the operative levels. Foraminal stenosis associated with uncovertebral osteophyte projections noted on preoperative studies and confirmed on initial foraminal assessment after discectomy was fully patent after osteophytectomy and foraminotomy bilaterally at both levels. 6) Optimal interference fit of the interbody composite allograft and fixation of the anterior transvertebral plate-screw construct as well as interbody fixation of the zero profile Divergence PEEK cage with endplate screw fixation was achieved at the C6-C7 and C7-T1 levels respectively and documented by intraoperative palpation. Optimal position was confirmed on final intraoperative fluoroscopic images. 7) Partial sabianist of lordotic segmental and regional alignment was confirmed by intraoperative radiologic assessment. Discharge Disposition: PACU Additional Comments: The patient will be admitted to the hospital on the Orthopaedic Surgery (Izzy Duarte M.D.) service. Once cleared by anesthesia and recovery room assessments she can be transferred to the surgical floor where standard postoperative spine service, nursing, physical therapy, discharge planning and any other indicated hospital service care protocols for multilevel anterior cervical discectomy and instrumented fusion patients will be followed. These standard postoperative protocols will include: Continue perioperative antibiotics for a total of 24 hours (3 total doses of IV Ancef 2 grams q8 hours including the initial intraoperative dose). Removal of Johnston catheter in recovery room. Removal of HAKEEM drain in the morning on POD #1. The patient will use her Barnwell cervical collar most of the time when she is out of bed but may remove it to take breaks and for hygiene. Even when the collar is in place, but particularly when the collar is off, the patient is cautioned to minimize neck motion. This level of collar use and motion limitation will continue until her first postoperative visit at which time future need for the collar will be assessed. It is not necessary for her to use the collar constantly nor when she is sleeping although she may use it (or a soft foam collar) at night for comfort if she so chooses. A more comfortable Edgar-J cervical collar will be dispensed and fitted through the office during the first postoperative week and the Barnwell collar can then be used for showering thereafter if necessary. The patient will be instructed on and follow standard protocols regarding anterior cervical surgical site care, showering and daily dressing changes following shower starting on postoperative day #2. Physical therapy will be consulted for evaluation on the afternoon of surgery or the first postoperative morning for education regarding collar application, removal and exchange (particularly between regular and shower collars), extremity range of motion and strengthening exercises, mobilization from and to bed, chair and bathroom as well as stair climbing and descending as needed in preparation for home discharge and independent home function. The patient is encouraged to minimize neck motion, lifting, carrying, pushing, pulling and overhead reaching particularly during the first 6 weeks postoperatively. Advance normal diet as tolerated and without any required restrictions. Recommend brief liquid and soft intake trials initially in recovery room and on arrival to floor before advancing. Balanced diet is recommended to support optimal surgical site and osseous healing. If swallowing difficulty develops then reduce diet to mechanical soft or liquid diet and contact surgeon. The patient is at low perioperative thromboembolic risk and does not require any pharmacologic prophylactic treatment in this regard as long as she mobilizes early and frequently with lower extremity motion exercises and ambulation. Sequential compression devices will be used throughout the patient's hospitalization. Contact Dr. Duarte in the unlikely event that the patient is unable to mobilize adequately (at least to the hallway) with physical therapy and/or nursing by the first postoperative morning at which point pharmacological prophylaxis may need to be considered. Assuming standard hospital course: Discharge planning for home discharge can begin on the afternoon of surgery. The patient will be discharged with the following prescriptions: Narcotic Pain Medication: Oxycodone/Acetaminophen 5/325 mg 1-2 PO q4-6 hours prn pain (#40, No Refill) Benzodiazepine Muscle Relaxant Medication: Diazepam 5 mg 1-2 PO q8 hours prn spasm (#30, No Refill) The patient was instructed not to drive for at least the first 2 weeks postoperatively and given recommendations regarding short distance driving thereafter only if she no longer requires a collar, has good pain control without the need for narcotic or other sedating medication and has met all DMV criteria for safely operating her specific motor vehicle. Initial postoperative follow-up evaluation with Dr. Duarte was scheduled for the patient prior to surgery and should be approximately 10-14 days postoperatively at which time her surgical site will be checked and her early response to surgery assessed. Outpatient physical therapy as well as other plans and arrangements will be made at that time along with a schedule for graded return to more normal home activities. The patient will not be ready to consider even light duty work return until at least 3-6 weeks postoperatively and this will obviously depend on standard office assessments as well as specific job requirements and available accommodations. Anterior-posterior and lateral cervical spine radiographs will be performed (without the collar in place) at the 6 week follow-up evaluation unless indicated earlier. The patient already has Dr. Sanon and Dr. Cuadra's office contact information and will again be given the office phone numbers along with home care instructions prior to discharge. She is encouraged to call for any questions or concerns and particularly for any significant or prolonged fever or incisional drainage, erythema or swelling as well as for any pronounced breathing, swallowing, vocalization or neurological changes. CC: GERALD MCGOVERN,IZZY Mata; VENECIA MCGOVERN,ANTOINE Kern; JHOANA MCGOVERN,SARAHY
== END 2017-02-22 11:35 | DRG 472 ==
LOC: SDA 01:45 → ENRESERV 16:45 → 2NA 17:28 → ENPENDDIS 02-22 11:13 → 2NA 02-22 11:35
PROVIDERS: Physician Assistant Surgical; ADMIT Orthopaedic Surgery Orthopaedic Surgery of the Spine
PROC: 0RG40A0 Fusion of Cervicothoracic Vertebral Joint with Interbody Fusion Device, Anterior Approach, Anterior Column, Open Approach (ICD-10-PCS; principal; 2017-02-21)
PROC: 0RG20A0 Fusion of 2 or more Cervical Vertebral Joints with Interbody Fusion Device, Anterior Approach, Anterior Column, Open Approach (ICD-10-PCS; principal; 2017-02-21)
PROC: 0RT30ZZ Resection of Cervical Vertebral Disc, Open Approach (ICD-10-PCS; 2017-02-21)
PROC: 0W360ZZ Control Bleeding in Neck, Open Approach (ICD-10-PCS; 2017-02-21)
PROC: 4A11X4G Monitoring of Peripheral Nervous Electrical Activity, Intraoperative, External Approach (ICD-10-PCS; 2017-02-21)
DX: M47.22 Other spondylosis with radiculopathy, cervical region (principal); I97.620 Postprocedural hemorrhage of a circulatory system organ or structure following other procedure; M50.13 Cervical disc disorder with radiculopathy, cervicothoracic region; M47.23 Other spondylosis with radiculopathy, cervicothoracic region; Y83.8 Other surgical procedures as the cause of abnormal reaction of the patient, or of later complication, without mention of misadventure at the time of the procedure; Y92.234 Operating room of hospital as the place of occurrence of the external cause
CPT/HCPCS: 2NAP; 72040; 82436; 87086; 88304; 97116-GO; 97161-GP; 97530-GO; C1713; J0131; J0690; J1170; J2405; J2550; J3360; J3490

== ENCOUNTER 2017-03-19 18:43 | Emergency (ER) | payer OTHER ==
[~2017-03-19] VITALS: Ht 162.6 cm; Wt 68.0 kg
[~2017-03-19 18:43] MED LIST changes: +PERCOCET 5-3251 EACH PO
--- NOTE | 2017-03-19 19:43 | ED NECK/BACK PAIN COMPLAINT ---
History of Present Illness General Chief Complaint: Neck/Upper Back Pain/Injury Stated Complaint: THROAT HURTING/S/P NECK SURG 02/21 Source: patient, family, old records Exam Limitations: no limitations Vital Signs & Intake/Output Vital Signs & Intake/Output Vital Signs Date Time Temp Pulse Resp B/P B/P Pulse O2 O2 Flow FiO2 Mean Ox Delivery Rate 03/19 1855 98.6 103 16 128/80 96 Room Air Allergies Coded Allergies: NO KNOWN ALLERGIES (01/25/12) Reconcile Medications Albuterol Sulfate (Proair Hfa) 90 MCG HFA.AER.AD 2 PUF INH Q4-6 PRN PRN asthma Albuterol Sulfate 1.25 MG/3 ML VIAL.NEB 1 Vial INH/JASON Q4-6 PRN asthma [BIOSIL] 1 CAP PO DAILY SUPPLEMENT (Reported) Multivitamin With Iron (Hair Vitamin) 1 EACH TABLET 1 TAB PO DAILY SUPPLEMENT (Reported) [nebulizer machine] 1 U NEB 1 U UNK 1 PRN ASTHMA NEBULIZER MACHINE Oxycodone HCl/Acetaminophen (Percocet 5-325 MG Tablet) 5 MG-325 MG TABLET 1-2 TAB PO Q4P PRN PAIN Triage Note: PT HAS CERVICAL FUSION ON THE AND PT SAW DR. CHEATHAM AND WAS TOLD TO SEE ENT. PT LEAVING FOR VACTION AND STATES SHE JUST WANTED TO BE SEEN BY PRIOR TO VACATION Triage Nurses Notes Reviewed? yes HPI: Patient is one month post cervical fusion with an anterior approach. Patient continues to have hoarseness. Patient has been seen by her orthopedist as well as her neurosurgeon. They advised her to see an ear nose and throat doctor. Patient is unable to get an appointment until April. Patient is leaving for vacation so do not know what else to do so comes in for evaluation. Patient denies any difficulty breathing. Patient states that she has some trouble swallowing pills. Patient states that it feels like to get stuck with equal down. There is no difficulty eating or drinking. There are no fevers or chills. Past History Travel History Traveled to [place] past 21 day No Medical History Any Pertinent Medical History? see below for history Neurological: NONE EENT: NONE Cardiovascular: NONE Respiratory: NONE Gastrointestinal: NONE Hepatic: NONE Renal: NONE Musculoskeletal: C5-C6 FUSION C7-71 Psychiatric: NONE Endocrine: NONE Blood Disorders: NONE Cancer(s): NONE HUMAN SERVICES PROFESSIONAL/Reproductive: NONE History of MRSA: No History of VRE: No History of CDIFF: No Surgical History Surgical History: c56 fusion Psychosocial History Who do you live with Family Services at Home None What is your primary language Sammarinese Tobacco Use: Never used ETOH Use: occasional use Illicit Drug Use: denies illicit drug use Family History Hx Contributory? No Review of Systems Review of Systems Constitutional: Reports: no symptoms. Ears, Nose, Throat, Mouth: Reports: see HPI. Respiratory: Reports: no symptoms. Cardiovascular: Reports: no symptoms. Musculoskeletal: Reports: no symptoms. Neurological/Psychological: Reports: no symptoms. Physical Exam Physical Exam General Appearance: well developed/nourished, alert, awake Head: atraumatic, normal appearance Eyes: Bilateral: PERRL, EOMI. Neck: normal inspection, full range of motion Respiratory: normal breath sounds, chest non-tender, no respiratory distress, lungs clear Cardiovascular: regular rate/rhythm, normal peripheral pulses Gastrointestinal: normal bowel sounds, soft, non-tender, no organomegaly Neurologic/Psych: no motor/sensory deficits, awake, alert, oriented x 3, normal gait, normal mood/affect Progress Differential Diagnosis: EXTRINSIC COMPRESSION, SWELLING Plan of Care: Orders Procedure Date/time Status COMPREHENSIVE METABOLIC PANEL 03/19 1943 Complete CBC WITHOUT DIFFERENTIAL 03/19 1943 Complete Laboratory Tests 03/19/172051: Anion Gap 10, Estimated GFR > 60, BUN/Creatinine Ratio 17.5, Glucose 106 H, Calcium 9.2, Total Bilirubin 0.5, AST 32, ALT 43, Alkaline Phosphatase 97, Total Protein 6.6, Albumin 4.1, Globulin 2.5, Albumin/Globulin Ratio 1.6 03/19/171956: CBC w Diff NO MAN DIFF REQ, RBC 4.34, MCV 86.6, MCH 29.3, RDW 13.3, MPV 7.9, Gran % 53.7, Lymphocytes % 34.2, Monocytes % 8.5, Eosinophils % 3.1, Basophils % 0.5, Absolute Granulocytes 2.6, Absolute Lymphocytes 1.7, Absolute Monocytes 0.4 , Absolute Eosinophils 0.2, Absolute Basophils 0, PUBS MCHC 33.8 Diagnostic Imaging: Viewed by Me: CT Scan. Discussed w/RAD: CT Scan. Radiology Impression: PATIENT: ORLANDO KELLEY PRESENT AGE: 61 PATIENT ACCOUNT NO: [id number] : 59 LOCATION: [facility] ORDERING PHYSICIAN: ZARA TAVAREZ MD SERVICE DATE: 03/19/17 EXAM TYPE: CAT - CT NECK W IV CONTRAST EXAMINATION: CT NECK WITH CONTRAST CLINICAL INFORMATION: 4 weeks post cervical fusion, anterior approach. Question swelling. COMPARISON: None TECHNIQUE: Multidetector volumetric imaging of the neck was performed after administration of 95 mL of Optiray 320 IV contrast. Coronal and sagittal reformatted images were obtained at the technologist workstation. DLP: 487 mGy-cm FINDINGS: There is anterior cervical fusion at C6-C7 with intervertebral disc spacers at C6-C7 and C7-T1, with additional hardware at C7- T1. There is bony fusion of the C5-C6 vertebral bodies. Hardware appears intact. No acute osseous abnormality. The prevertebral soft tissues demonstrate no fluid collection. Minimal soft tissue fullness is seen in the region of the anterior cervical fusion hardware which could represent mild residual edema. There is also minimal superficial edema seen anteriorly, at the level of the thyroid gland. No cervical adenopathy is identified. The parotid glands are homogeneous in attenuation. The submandibular glands are normal. No contour abnormality is seen within the oral cavity or pharyngeal mucosal space. The laryngeal structures are normal. The parapharyngeal fat is preserved. No extra mucosal soft tissue mass or fluid collection is seen. The cervical vasculature is unremarkable. The thyroid gland is normal. The superior mediastinum is unremarkable. The lung apices are clear. The mastoid air cells and visualized portions of the paranasal sinuses are well-aerated. The temporomandibular joints are normal. No periapical disease is identified. No osseous abnormalities are seen. The imaged portions of the brain parenchyma are unremarkable. IMPRESSION: Postsurgical changes status post anterior fusion at C6-C7 existing fusion of C5- C6 intact with fusion at C7-T1 as well. No fluid collection. Minimal superficial stranding anteriorly in the neck with mild fullness in the region of the anterior fusion hardware which may represent mild residual edema. No significant prevertebral soft tissue swelling DICTATED BY: JOSE MCGOVERN,SHAHRIAR DATE/TIME DICTATED:03/19/172203 NATURAL RESOURCE MANAGER:BERNADINE DATE/TIME TRANSCRIBED:2203 CONFIDENTIAL, DO NOT COPY WITHOUT APPROPRIATE AUTHORIZATION. < Electronically signed in Other Vendor System> SIGNED BY: JOSE MCGOVERN, SHAHRIAR 03/19/17 0086 Comments: CAT scan results and laboratory data have been discussed with the patient and her family. Questions up and answered. Departure Departure Disposition: HOME OR SELF CARE Condition: Stable Clinical Impression Primary Impression: Hoarseness of voice Referrals: PATRICK MCGOVERN,MERLINE Sebastian (PCP/Family) Additional Instructions: FOLLOW UP WITH ENT WHEN YOU RETURN FROM VACATION TAKE MEDROL DOSE PACK PRESCRIBED RETURN FOR ANY CONCERNS Departure Forms: Customer Survey General Discharge Information Prescriptions: Current Visit Scripts Methylprednisolone. (Medrol) 1 DP PO AD #1 DP 6 on day 1 then reduce by one tablet daily until gone
[2017-03-19 20:15] LABS: ABSOLUTE BASOPHIL COUNT 0 /CUMM (0.0-0.2); ABSOLUTE EOSINOPHIL COUNT 0.2 /CUMM (0.0-0.7); ABSOLUTE GRANULOCYTE CT 2.6 /CUMM (1.4-6.5); ABSOLUTE LYMPH COUNT 1.7 /CUMM (1.2-3.4); ABSOLUTE MONOCYTE COUNT 0.4 /CUMM (0.10-0.60); BASOPHIL % 0.5 % (0.0-2.0); EOSINOPHIL % 3.1 % (0-5); GRANULOCYTE % 53.7 % (42.2-75.2); HEMATOCRIT 37.6 % (37-47); MEAN CORPUSCULAR HGB 29.3 PG (27.0-31.0); MEAN CORPUSCULAR HGB CONC 33.8 G/DL (33.0-37.0); MEAN CORPUSCULAR VOLUME 86.6 FL (81.0-99.0); MEAN PLATELET VOLUME 7.9 FL (7.4-10.4); PLATELET COUNT 345 /CUMM (130-400); RBC DISTRIBUTION WIDTH 13.3 % (11.5-14.5); RED BLOOD CELL CT 4.34 /CUMM (4.20-5.40); WHITE BLOOD CELL COUNT 4.9 /CUMM (4.8-10.8)
--- NOTE | 2017-03-19 22:14 | CT SCAN REPORT ---
EXAMINATION: CT NECK WITH CONTRAST CLINICAL INFORMATION: 4 weeks post cervical fusion, anterior approach. Question swelling. COMPARISON: None TECHNIQUE: Multidetector volumetric imaging of the neck was performed after administration of 95 mL of Optiray 320 IV contrast. Coronal and sagittal reformatted images were obtained at the technologist workstation. DLP: 487 mGy-cm FINDINGS: There is anterior cervical fusion at C6-C7 with intervertebral disc spacers at C6-C7 and C7-T1, with additional hardware at C7-T1. There is bony fusion of the C5-C6 vertebral bodies. Hardware appears intact. No acute osseous abnormality. The prevertebral soft tissues demonstrate no fluid collection. Minimal soft tissue fullness is seen in the region of the anterior cervical fusion hardware which could represent mild residual edema. There is also minimal superficial edema seen anteriorly, at the level of the thyroid gland. No cervical adenopathy is identified. The parotid glands are homogeneous in attenuation. The submandibular glands are normal. No contour abnormality is seen within the oral cavity or pharyngeal mucosal space. The laryngeal structures are normal. The parapharyngeal fat is preserved. No extra mucosal soft tissue mass or fluid collection is seen. The cervical vasculature is unremarkable. The thyroid gland is normal. The superior mediastinum is unremarkable. The lung apices are clear. The mastoid air cells and visualized portions of the paranasal sinuses are well-aerated. The temporomandibular joints are normal. No periapical disease is identified. No osseous abnormalities are seen. The imaged portions of the brain parenchyma are unremarkable. IMPRESSION: Postsurgical changes status post anterior fusion at C6-C7 existing fusion of C5-C6 intact with fusion at C7-T1 as well. No fluid collection. Minimal superficial stranding anteriorly in the neck with mild fullness in the region of the anterior fusion hardware which may represent mild residual edema. No significant prevertebral soft tissue swelling
[2017-03-19] MEDS ORDERED: MEDROL4 M2 PO (22:25)
[2017-03-19 22:41] VITALS: BP 126/81
== END 2017-03-19 22:41 ==
LOC: ERH 18:43
PROVIDERS: Emergency Medicine
DX: R49.0 Dysphonia (principal)